=== PATIENT | male | born 1990 | race Caucasian/White ===

== ENCOUNTER 2019-11-19 00:42 | Emergency (ER) | payer SELFPAY ==
[2019-11-19 00:50] VITALS: BP 134/91; PULSE 92; RESP 20; TEMP 36.4; O2SAT 91; BMI 26.9
--- NOTE | 2019-11-19 01:38 | W.ED.EAR ---
HPI - Ear Problem General: Chief complaint: Ear Stated complaint: foreign obj in ear Time Seen by Provider: 11/19/19 01:17 Source: patient Mode of arrival: ambulatory Limitations: no limitations History of Present Illness: HPI Narrative: Patient states he is been out camping when he felt something go in his ear. He feels as though it may be a bug. He states he can feel the insect move up against his ear. He denies any vertigo, vomiting, headache, discharge or bleeding from the ear. Associated symptoms: Denies fever(s), headache(s) or neck pain Review of Systems Const: Denies: fever(s) Eyes: Denies: change in vision ENMT: Denies: throat pain Card: Denies: chest pain, palpitations, syncope, pre-syncope or dyspnea on exertion Resp: Denies: dyspnea, productive cough or non-productive cough GI: Denies: abdominal pain, nausea, vomiting or diarrhea : Denies: flank pain, dysuria, urinary frequency or urinary urgency Musc: Denies: neck pain, back pain or extremity pain Skin/Breast: Denies: rash or pruritus Neuro: Denies: headache(s), numbness in extremities, weakness in extremities or dizziness [place]/Lymph: Denies: easy bruising or easy bleeding All/Imm: Denies: urticaria PFSH ED PFSH: Medical History (Updated 11/19/19 @ 02:03 by Lisa Falcon) No pertinent past medical history Social History Smoking and tobacco status: current every day smoker Physical Exam Const: COMMON NORMALS: no acute distress, patient oriented x3, no limitations, healthy appearing and well nourished GENERAL APPEARANCE: cooperative, well kempt and well developed HENMT: COMMON NORMALS: normocephalic, atraumatic, external ears normal, TM's normal bilaterally and Normal external nose present HEAD & SCALP: normal to inspection, normocephalic and atraumatic FACE & SINUS: normal facial exam and face symmetric NOSE: Normal external nose present and Normal nares present EXTERNAL EAR: Yes external ears normal EXTERNAL AUDITORY CANAL: Abnormal EAC present EAC laterality: right Details: foreign body (Insect lying next to the tympanic membrane) TYMPANIC MEMBRANE: TM's normal bilaterally MOUTH: Normal oral and palatal mucosa present, lip normal and tongue normal Eye: COMMON NORMALS: Equal, round and reactive pupils present and conjunctivae normal GENERAL EYE: appearance normal, both eyes and all related structures ALIGNMENT: Yes alignment normal PERIORBITAL: periorbital findings normal EYELID: eyelids normal CONJUNCTIVA: Yes conjunctivae normal SCLERA: sclerae normal PUPIL: Yes Equal, round and reactive pupils present Neck/C-Spine: COMMON NORMALS: full ROM, no lymphadenopathy, supple, no meningeal signs and no JVD GENERAL: Yes normal visual inspection and Yes trachea midline Chest: COMMONS NORMALS: normal inspection of the chest and normal palpation of entire chest wall Resp: COMMON NORMALS: normal respiratory effort, No retractions and No use of accessory muscles EFFORT & INSPECTION: Yes able to speak in complete sentences and Yes symmetric chest movement AUSCULTATION: no crackles, no rales, no rhonchi and no wheezes Cardio: COMMON NORMALS: no JVD, regular rate, regular rhythm, S1 normal heart sound present and S2 normal heart sound present RATE: regular rate RHYTHM: regular rhythm HEART SOUNDS: S1 normal heart sound present, S2 normal heart sound present, no click, no gallops, no murmurs, no rubs and abnormal split S2 GI: COMMON NORMALS: Soft to palpation and No hepatosplenomegaly present PALPATION: Yes Soft to palpation, No Tenderness to palpation present (GI), No Guarding due to palpation present (GI), No Rigid due to palpation, Yes No hepatosplenomegaly present, No Hernia present, No Palpable mass present and No Pulsatile mass present : COMMON NORMALS: Yes no CVA tenderness BLADDER/KIDNEY EXAM: Yes no CVA tenderness Back/Pelvis: COMMON NORMALS: no CVA tenderness, thoracic and lumbar spine normal to inspection, no thoracic nor lumbar tenderness and thoraco-lumbar ROM normal Extremity: COMMON NORMALS: normal to inspection, full ROM, capillary refill normal, no joint enlargement, no clubbing, cyanosis or edema and no calf tenderness Neuro: COMMON NORMALS: patient oriented x3, CN's II-XII intact bilaterally, moves all extremities, no focal motor deficits and no sensory deficits noted MENINGEAL SIGNS: Yes no meningeal signs SPEECH: speech normal Psych: COMMON NORMALS: mental status grossly normal, Normal thought process present, cooperative, normal affect, speech normal and activity/motor behavior normal APPEARANCE: Yes well kempt SPEECH: Yes normal speech THOUGHT PROCESS: Normal thought process present Skin: COMMON NORMALS: no rashes or lesions noted, turgor normal, no jaundice, no petechiae and no mottling GENERAL SKIN EXAM: no rashes or lesions noted and turgor normal Procedures FB Removal Ear Location: ear canal (R) Foreign Body Suspected: insect TM intact pre-procedure: yes If Insect Suspected: ear canal instilled with Lidocaine Foreign Body Removed: yes Foreign Body Removal Technique: instrumentation Tympanic Membrane Intact Post Procedure: Yes Patient Tolerated Procedure: well Complications: none Course Vital Signs: Vital signs: Vital Signs Temperature 97.6 F 11/19/19 00:50 Pulse Rate 92 11/19/19 00:50 Respiratory Rate 20 H 11/19/19 00:50 Blood Pressure 134/91 11/19/19 00:50 Pulse Oximetry 91 11/19/19 00:50 MDM - Ear MDM Narrative: Medical decision making narrative: After numbing and then irrigation the insect came further out of the ear canal. I was able to grasp it with alligator forceps and remove it in its entirety/hold. The ear canal was then examined I saw no evidence of any further foreign body. There was some irritation of the canal as the area had been irrigated so it was then irrigated again to remove any possible remaining foreign body. I will place him on ofloxacin eardrops for the next 7 days to prevent any infection. Discharge Plan Discharge Patient Disposition: Home, Self-Care Clinical Impression: Foreign body in ear Qualifiers: Encounter type: initial encounter Laterality: left Qualified Code(s): T16.2XXA - Foreign body in left ear, initial encounter Condition: Stable Prescriptions: No Action No Known Home Medications RF: 0 Discharge Orders: Discharge Order (Routine); Ordered 11/19/19 Ordered By: Lisa Falcon Referrals: Jerad Sepulveda MD [Physician] - 1-3 days Discharge Diet: Advance as tolerated Discharge Activity: Increase activity as tolerated Patient Instructions: Otitis Externa (ED) Activity Restrictions/Additional Instructions: Please return to the ER immediately for any of the signs or symptoms listed on your discharge instruction sheets, worsening/changing of your symptoms, you are not getting better as quickly as expected, or for ANY other cause or concerns. Return to the ER for increased pain, dizziness, vomiting, fever, or for any other cause for concern. Use the eardrops I am sending home with you, use 10 drops in your left ear daily for 6 more days. Discharge Date/Time: 11/19/19 02:26 Coding Level of Care Code ED Calender Operator Helper for Chg Fwd Exam Comprehensive
[2019-11-19] MEDS: ofloxacin 0.3% otic 5 mL Btl 3 DROP EAR-LEFT ×2 (02:21→02:26)
== END 2019-11-19 02:26 | disposition home or self-care (01) ==
PROVIDERS: Emergency Provider Emergency Medicine
DX: T16.2XXA Foreign body in left ear, initial encounter (principal); X58.XXXA Exposure to other specified factors, initial encounter; F17.210 Nicotine dependence, cigarettes, uncomplicated
CPT/HCPCS: 12345; 99282

== ENCOUNTER 2022-04-27 20:16 | Emergency (ER) | payer SELFPAY ==
[2022-04-27 20:28] VITALS: BP 123/83; PULSE 82; RESP 16; TEMP 37; O2SAT 97; BMI 25.2
[2022-04-27 22:01] VITALS: BP 123/83; PULSE 82; RESP 16; TEMP 37; O2SAT 97
--- NOTE | 2022-04-27 22:51 | XRR_ITS ---
PROCEDURE INFORMATION: Exam: XR Abdomen Exam date and time: 04/28/2022 12:02 AM Age: 31 years old Clinical indication: Abdominal pain; Flank; Right; Additional info: Right flank pain TECHNIQUE: Imaging protocol: Radiologic exam of the abdomen. Views: Frontal supine view of the abdomen. 1 View. COMPARISON: CR XR acute abdomen series [id number] 07/04/2016 2:42 PM FINDINGS: Gastrointestinal tract: Moderate retained feces. Bones/joints: Unremarkable. XR/XR KUB [id number] IMPRESSION: Moderate retained feces.
[2022-04-27 23:24] LABS: Add Urine Microscopic? NO; Charge for UA Resulting for Rev
[2022-04-27 23:28] LABS: Urine Appearance Clear (CLEAR); Urine Color Yellow (Yellow)
[2022-04-27 23:29] LABS: Bilirubin Urine Neg (Negative); Blood Urine Neg (Negative); Glucose Urine UA Norm (Normal); Ketones Urine 1+ (Negative); Leukocyte Esterase Urine Negative (Negative); Nitrate Urine Negative (Negative); Protein Urine Neg (Negative); Specific Gravity, Urine 1.015 (1.005-1.030); Urobilinogen Urine 1 mg/dL (Negative); pH Urine 7 (5-7)
--- NOTE | 2022-04-28 00:09 | W.ED.BACK ---
HPI - Back Pain/Injury General: Chief Complaint: Back Pain/Injury Stated Complaint: Lower Back Pain Time Seen by Provider: 04/27/22 21:38 History of Present Illness: Patient reports off and on for a week he has been having right-sided flank pain. He reports that it just comes and goes and it feels like it tightens and is stabbing and then it goes away. He cannot determine anything that makes this better or worse. 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 He denies any urinary symptoms. He denies any hematuria. He denies fever or chills. He denies nausea and vomiting. He denies any saddle anesthesia, loss of bowel or bladder continence. He does have concern for renal stone. Associated symptoms: Deny abdominal pain, chills, dysuria, fever(s), hematuria, nausea, urinary urgency or vomiting Review of Systems Const: Denies: fever(s), chills or body aches Card: Denies: chest pain or palpitations Resp: Denies: dyspnea, productive cough or non-productive cough GI: Denies: abdominal pain, nausea or vomiting : Reports: flank pain; Denies: difficulty urinating, dysuria, urinary frequency, urinary urgency, urinary hesitancy or hematuria Musc: Reports: back pain (Right-sided back pain) [facility] ED PFSH: Medical History No pertinent past medical history Social History Smoking and tobacco status: current every day smoker Physical Exam Const: COMMON NORMALS: no acute distress, patient oriented x3 and alert OTHER: Patient is actually resting with his eyes closed in the chair whenever I am not in the room Neck/C-Spine: COMMON NORMALS: no JVD Resp: COMMON NORMALS: normal respiratory effort, No use of accessory muscles and clear to auscultation bilaterally AUSCULTATION: clear to auscultation bilaterally Cardio: COMMON NORMALS: no JVD, regular rate, regular rhythm, S1 normal heart sound present, S2 normal heart sound present and No murmurs present (Cardio) RATE: regular rate RHYTHM: regular rhythm HEART SOUNDS: S1 normal heart sound present and S2 normal heart sound present GI: COMMON NORMALS: Normal to inspection, nondistended, normoactive bowel sounds present, Soft to palpation and non-tender PALPATION: Yes Soft to palpation : BLADDER/KIDNEY EXAM: Yes CVA tenderness (Mild) on the right Back/Pelvis: GENERAL BACK: Yes CVA tenderness (Mild) OTHER: There is mild paraspinal muscular tension right side lumbar however palpation of this area does not reproduce pain complaint. There is no vertebral point tenderness. Neuro: COMMON NORMALS: patient oriented x3 SENSORIUM/ORIENTATION: Yes alert Course Vital Signs: Vital signs: Vital Signs Temperature 98.6 F 04/27/22 22:01 Pulse Rate 82 04/27/22 22:01 Respiratory Rate 16 04/27/22 22:01 Blood Pressure 123/83 04/27/22 22:01 Pulse Oximetry 97 04/27/22 22:01 Oxygen Delivery Me thod 04/27/22 22:01 MDM - Back Pain/Injury Medical Decision Making Consider renal stone, lumbar ago, muscle spasm, urinary tract infection, pyelonephritis. Urine was positive for ketones and 1+ bilirubin negative for nitrates or blood. KUB positive for moderate retained feces otherwise negative. Patient is in no acute distress. Does not have significant CVA tenderness. Is afebrile with no other indications of significant infection or obstruction. We will treat patient with muscle relaxant and anti-inflammatory medications. Encouraged him to stay well-hydrated. Follow-up with primary care provider as needed. Return to the ER for any new or worsening symptoms or if symptoms are. Persisting beyond the next 48 to 72 hours despite treatment. Patient is agreeable to this plan of care Labs Radiology Impressions KUB X-Ray 04/27/22 22:51 IMPRESSION: Moderate retained feces. Laboratory Results Urine Color Yellow (Yellow) 04/27/22 23:17 Urine Appearance Clear (CLEAR) 04/27/22 23:17 Urine pH 7 (5-7) 04/27/22 23:17 Ur Specific [place] 1.015 (1.005-1.030) 04/27/22 23:17 Urine Protein Neg (Negative) 04/27/22 23:17 Urine Glucose (UA) Norm (Normal) 04/27/22 23:17 Urine Ketones 1+ (Negative) H 04/27/22 23:17 Urine Blood Neg (Negative) 11/27/22 23:17 Urine Nitrate Negative (Negative) 04/27/22 23:17 Urine Bilirubin Neg (Negative) 04/27/22 23:17 Urine Urobilinogen 1 mg/dL (Negative) H 04/27/22 23:17 Ur Leukocyte Esterase Negative (Negative) 04/27/22 23:17 Discharge Plan Discharge Patient Disposition: Home Clinical Impression: Muscle spasm, Flank pain, Constipation Condition: Stable Prescriptions: New methocarbamol 750 mg tablet 750 mg PO Q8H PRN (Reason: muscle spasm) Qty: 10 0RF naproxen 500 mg tablet 500 mg PO BID PRN (Reason: pain) 3 Days Qty: 6 0RF Discharge Orders: Discharge ED (Routine); Ordered 04/28/22 Ordered By: Jess Jain Discharge Diet: Usual diet Discharge Activity: Resume usual activity Patient Instructions: Constipation (ED), Flank Pain (ED), Muscle Spasm (ED) Activity Restrictions/Additional Instructions: Take Robaxin when you get home tonight. Do not take this medication and then drive. Do not take other medications that make you sleepy with the Robaxin. Fill your prescription tomorrow and start the Robaxin and the naproxen as prescribed as needed. Monitor closely for worsening symptoms. Follow-up with your primary care provider. Return to the ER for any new or worsening symptoms. I recommend no lifting for the next 3 days to allow your back to rest. Coding Level of Care Code ED Control Clerk Food And Beverage for Ana Rosa Fwbertha Exam Detailed
[2022-04-28] MEDS: methocarbamol 750 mg Tablet PO (00:27)
[2022-04-28] MEDS: ketorolac 60 mg/2 mL INJ IM (00:28)
[2022-04-28 00:31] VITALS: BP 123/78; PULSE 78; RESP 18; O2SAT 100
== END 2022-04-28 00:30 | disposition home or self-care (01) ==
PROVIDERS: Emergency Provider Nurse Practitioner Family
DX: M62.830 Muscle spasm of back (principal); K59.00 Constipation, unspecified; R10.31 Right lower quadrant pain
CPT/HCPCS: 74018; 81003; 96372; 99284; J1885

== ENCOUNTER 2023-01-18 13:11 | Emergency (ER) | payer MEDICAID, SELFPAY ==
[2023-01-18 13:16] VITALS: BP 116/79; PULSE 118; RESP 17; TEMP 36.7; O2SAT 98
--- NOTE | 2023-01-18 13:40 | W.ED.DIZZY ---
HPI - Dizziness General: Chief Complaint: Dizziness Stated Complaint: weakness Time Seen by Provider: 01/18/23 13:37 Source: patient Mode of arrival: ambulatory History of Present Illness: HPI Narrative: This 32-year-old male with a history of methamphetamine and marijuana use presents to the ER with intermittent dizziness that started over a month ago but has progressively worsened. Dizziness lasts for about 30 seconds and resolves spontaneously. It usually happens when he has been sitting down for long time. During the episode, he feels things are zooming in and out . There is no associated loss of consciousness, chest pain, nausea or vomiting. Patient denies fever. Patient believes that he drinks enough fluids daily. 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 He smokes marijuana daily. Associated symptoms: Denies chest pain, chills or headache(s) Review of Systems Const: Denies: chills, body aches or change in appetite Eyes: Denies: change in vision or eye discharge ENMT: Denies: throat pain, dental pain or nasal discharge Card: Denies: chest pain or lightheadedness : Denies: dysuria Musc: Denies: neck pain or back pain Neuro: Reports: dizziness; Denies: headache(s), weakness in extremities or vertigo Psych: Denies: depression Harlan/Lymph: Denies: easy bruising All/Imm: Denies: urticaria, tongue swelling or facial swelling PFSH ED PFSH: Medical History No pertinent past medical history Social History Smoking and tobacco status: current every day smoker Physical Exam Const: COMMON NORMALS: no acute distress, patient oriented x3, no limitations and alert HENMT: COMMON NORMALS: normocephalic HEAD & SCALP: normocephalic Eye: COMMON NORMALS: EOMs intact bilaterally Neck/C-Spine: COMMON NORMALS: full ROM and supple Chest: COMMONS NORMALS: normal inspection of the chest Resp: COMMON NORMALS: normal respiratory effort, No retractions, No use of accessory muscles and clear to auscultation bilaterally AUSCULTATION: clear to auscultation bilaterally Cardio: COMMON NORMALS: regular rate, regular rhythm and No murmurs present (Cardio) RATE: regular rate RHYTHM: regular rhythm GI: COMMON NORMALS: Normal to inspection, nondistended, normoactive bowel sounds present and non-tender : COMMON NORMALS: Yes no CVA tenderness BLADDER/KIDNEY EXAM: Yes no CVA tenderness Back/Pelvis: COMMON NORMALS: no CVA tenderness and no thoracic nor lumbar tenderness Extremity: GENERAL: Yes normal exam except as noted Neuro: COMMON NORMALS: patient oriented x3 and no focal motor deficits SENSORIUM/ORIENTATION: Yes alert COORDINATION/BALANCE: [id number] test normal SPEECH: speech normal GAIT: Yes Normal gait present SENSORY EXAM: Yes extremities COORDINATION: [id number] test normal Psych: COMMON NORMALS: mental status grossly normal and cooperative Course Vital Signs: Vital signs: Vital Signs Temperature 98.1 F 01/18/23 13:16 Pulse Rate 118 H 01/18/23 13:16 Respiratory Rate 18 01/18/23 14:20 Blood Pressure 116/79 01/18/23 13:16 Pulse Oximetry 98 01/18/23 13:16 Oxygen Delivery Me thod Room Air 01/18/23 14:20 MDM - Dizziness Medical Decision Making Medical decision making: History as above. Patient's dizzy spells appear to be short-lived. He remained stable throughout his stay in the ER. Clinical exam is negative for any significant finding. CT brain is normal and completed blood tests normal except for urine drug screen that is positive for methamphetamine and marijuana. I had an extensive discussion with patient about avoiding recreational substances. That may partly or fully explain his symptoms. He was advised to maintain adequate fluid intake and follow-up with his primary care physician. Reasons to return were discussed. Patient verbalized understanding and agrees with the plan. Lab Data 01/18/23 13:55 01/18/23 13:[address] 01/18/23 13:57 IMPRESSION: No mass effect, layering hemhorrage or hydocephalus is demostrated. No acute intracranial changes are appreciated. Laboratory Results WBC 7.6 10^3/uL (4.0-10.0) 01/18/23 13:55 RBC 5.46 10^6/uL (4.1-5.3) H 01/18/23 13:55 Hgb 14.9 g/dL (11.7-16.6) 01/18/23 13:55 Hct 46.4 % (42.0-52.0) 01/18/23 13:55 MCV 85.0 fl (80-94) 01/18/23 13:55 MCH 27.3 pg (28.0-34.0) L 01/18/23 13:55 MCHC 32.1 g/dL (30.0-36.0) 01/18/23 13:55 RDW 14.0 % (12.1-15.1) 01/18/23 13:55 Plt Count 270 10^3/cmm (130-400) 01/18/23 13:55 MPV 8.5 fL (7.4-10.4) 01/18/23 13:55 Neut % (Auto) 53.6 % 01/18/23 13:55 Lymph % (Auto) 31.9 % 01/18/23 13:55 [place] % (Auto) 9.9 % 01/18/23 13:55 Eos % (Auto) 2.9 % 01/18/23 13:55 Baso % (Auto) 1.3 % 01/18/23 13:55 Neut # (Auto) 4.07 10^3/uL (1.8-7.7) 01/18/23 13:55 Lymph # (Auto) 2.4 10^3/uL (0.8-4.8) 01/18/23 13:55 [place] # (Auto) 0.8 10^3/uL (0.2-0.9) 01/18/23 13:55 Eos # (Auto) 0.2 10^3/uL (0.0-0.8) 01/18/23 13:55 Baso # (Auto) 0.1 10^3/uL (0.0-0.1) 01/18/23 13:55 Nucleated RBC % (auto) 0 % 01/18/23 13:55 Nucleated RBCs # 0.0 /100WBC 01/18/23 13:55 Sodium 141 mmol/L (136-145) 01/18/23 13:55 Potassium 4.1 mmol/L (3.5-5.1) 01/18/23 13:55 Chloride 105 mmol/L (98-107) 01/18/23 13:55 Carbon Dioxide 28 mmol/L (22-29) 01/18/23 13:55 Anion Gap 12.1 (5-19) 01/18/23 13:55 BUN 16 mg/dL (6-20) 01/18/23 13:55 Creatinine 0.8 mg/dL (0.7-1.2) 01/18/23 13:55 GFR Calculation 112.8 mL/min (90-130) 01/18/23 13:55 Glucose 89 mg/dL (65-115) 01/18/23 13:55 Calculated Osmolality 293 mOsm/kg (285-295) 01/18/23 13:55 Calcium 9.0 mg/dL (8.5-10.5) 01/18/23 13:55 Total Bilirubin 0.2 mg/dL (0.15-1.2) 01/18/23 13:55 AST 40 U/L (0-40) 01/18/23 13:55 ALT 106 U/L (0-41) H 01/18/23 13:55 Alkaline Phosphatase 54 U/L (40-130) 01/18/23 13:55 Total Protein 6.7 g/dL (6.6-8.7) 01/18/23 13:55 Albumin 4.2 g/dL (3.5-5.2) 01/18/23 13:55 Globulin 2.5 g/dL (1.3-4.6) 01/18/23 13:55 Urine Color Yellow (Yellow) 01/18/23 14:15 Urine Appearance Clear (CLEAR) 01/18/23 14:15 Urine pH 6.5 (5-7) 01/18/23 14:15 Ur Specific [place] 1.015 (1.005-1.030) 01/18/23 14:15 Urine Protein Neg (Negative) 01/18/23 14:15 Urine Glucose (UA) Norm (Normal) 01/18/23 14:15 Urine Ketones Negative (Negative) 01/18/23 14:15 Urine Blood Neg (Negative) 01/18/23 14:15 Urine Nitrate Negative (Negative) 01/18/23 14:15 Urine Bilirubin Neg (Negative) 01/18/23 14:15 Urine Urobilinogen Norm mg/dL (Negative) 01/18/23 14:15 Ur Leukocyte Esterase Negative (Negative) 01/18/23 14:15 Urine Opiates Screen Negative ng/mL (Negative) 01/18/23 14:15 Ur Barbiturates Screen Negative ng/mL (Negative) 01/18/23 14:15 Ur Phencyclidine Scrn Negative ng/mL (Negative) 01/18/23 14:15 Ur Amphetamines Screen Positive ng/mL (Negative) H 01/18/23 14:15 U Benzodiazepines Scrn Negative ng/mL (Negative) 01/18/23 14:15 Urine Cocaine Screen Negative ng/mL (Negative) 01/18/23 14:15 U Marijuana (THC) Screen Positive ng/mL (Negative) H 01/18/23 14:15 Discharge Plan Discharge Patient Disposition: Home Clinical Impression: Dizziness, nonspecific Condition: Stable Prescriptions: New meclizine 25 mg tablet 25 mg PO TID PRN (Reason: dizziness) Qty: 20 0RF No Action ibuprofen 200 mg Tablet 800 mg PO Q8H PRN (Reason: Pain) Discharge Orders: Discharge ED (Routine); Ordered 01/18/23 Ordered By: Josesito Javier Discharge Diet: Usual diet Discharge Activity: Resume usual activity Patient Instructions: Opioid Safety, Pain Management Activity Restrictions/Additional Instructions: Avoid use of recreational substances like methamphetamine. Maintain adequate fluid intake. Take meclizine as needed for dizziness. Follow-up with your primary care physician within a week for reevaluation. Return if you develop any new or worsening symptoms. Coding Level of Care Code ED Complaint Evaluation Supervisor for Ana Rosa Fuentes
[2023-01-18] MEDS: meclizine 25 mg tablet 50 MG PO (13:57)
[2023-01-18] MEDS: sodium chloride 0.9% 1,000 ML 999 ML IV (13:57)
--- NOTE | 2023-01-18 13:57 | CTR_ITS ---
PROCEDURE INFORMATION: Exam: CT Head Without Contrast Exam date and time: 01/18/2023 2:15 PM Age: 32 years old Clinical indication: Dizziness. No history of trauma or recent surgery is provided. TECHNIQUE: Imaging protocol: Computed tomography of the head without contrast. 306image(s) are provided. Radiation optimization: All CT scans at this facility use at least one of these dose optimization techniques: automated exposure control; mA and/or kV adjustment per patient size (includes targeted exams where dose is matched to clinical indication); or iterative reconstruction. Other technique: Axial images are available with sagittal and coronal reconstruction views. Automated dose exposure control is utilized. The DLP is 1068.86. REPORTING DATA: Count of CT and Cardiac NM exams in prior 12 months: This patient has received 0 known CTs and 0 known cardiac nuclear medicine studies in the 12 months prior to the current study. COMPARISON: No relevant prior studies available. RADIATION DOSE METRICS: Total DLP (mGy-cm): 1068.86 FINDINGS: Brain: No mass effect or layering hemorrhage is appreciated. [place], white matter differentiation appears maintained. Cerebral ventricles: No hydrocephalus is appreciated. Paranasal sinuses: The included paranasal sinuses appear well-aerated overall. Mastoid air cells: The mastoid air cells appear well-aerated overall. Orbital cavities: Symmetric appearance of the orbital soft tissues is demonstrated. Bones/joints: Osseous alignment is maintained.No displaced fracture or dislocation is appreciated. There is a relatively symmetric overall appearance of the osseous margins of the internal auditory canals. Soft tissues: No radiopaque foreign body or subcutaneous emphysema is appreciated. CT/CT head wo con* [id number] IMPRESSION: No mass effect, layering hemhorrage or hydocephalus is demostrated. No acute intracranial changes are appreciated.
[2023-01-18 14:05] LABS: Basophils # 0.1 10^3/uL (0.0-0.1); Basophils % 1.3 %; Eosinophils # 0.2 10^3/uL (0.0-0.8); Eosinophils % 2.9 %; Hematocrit 46.4 % (42.0-52.0); Hemoglobin 14.9 g/dL (11.7-16.6); Lymphocytes # 2.4 10^3/uL (0.8-4.8); Lymphocytes % 31.9 %; Mean Corpuscular HGB Conc 32.1 g/dL (30.0-36.0); Mean Corpuscular Hemoglobin 27.3 pg (28.0-34.0); Mean Platelet Volume 8.5 fL (7.4-10.4); Monocytes # 0.8 10^3/uL (0.2-0.9); Monocytes % 9.9 %; Neutrophils # 4.07 10^3/uL (1.8-7.7); Neutrophils % 53.6 %; Nucleated Red Blood Cells % 0 %; Platelet Count 270 10^3/cmm (130-400); Red Blood Count 5.46 10^6/uL (4.1-5.3); White Blood Count 7.6 10^3/uL (4.0-10.0)
[2023-01-18 14:20] VITALS: RESP 18
[2023-01-18 14:26] LABS: Alanine Aminotransferase 106 U/L (0-41); Albumin Level 4.2 g/dL (3.5-5.2); Alkaline Phosphatase 54 U/L (40-130); Anion Gap 12.1 (5-19); Aspartate Amino Transferase 40 U/L (0-40); Blood Urea Nitrogen 16 mg/dL (6-20); Carbon Dioxide 28 mmol/L (22-29); Chloride 105 mmol/L (98-107); Creatinine Clr Calc Pharmacy 161.1785; Globulin 2.5 g/dL (1.3-4.6); Glomerular Filtration Rate 112.8 mL/min (90-130); Glucose 89 mg/dL (65-115); Osmolality Calculated 293 mOsm/kg (285-295); Potassium 4.1 mmol/L (3.5-5.1); Sodium 141 mmol/L (136-145); Total Bilirubin 0.2 mg/dL (0.15-1.2); Total Protein 6.7 g/dL (6.6-8.7)
[2023-01-18 14:55] LABS: Add Urine Microscopic? NO; Charge for UA Resulting for Rev
[2023-01-18 14:58] LABS: Bilirubin Urine Neg (Negative); Blood Urine Neg (Negative); Glucose Urine UA Norm (Normal); Ketones Urine Negative (Negative); Leukocyte Esterase Urine Negative (Negative); Nitrate Urine Negative (Negative); Protein Urine Neg (Negative); Specific Gravity, Urine 1.015 (1.005-1.030); Urine Appearance Clear (CLEAR); Urine Color Yellow (Yellow); Urobilinogen Urine Norm (Negative); pH Urine 6.5 (5-7)
[2023-01-18 15:06] LABS: Amphetamines Screen Urine Positive (Negative); Barbiturates Screen Urine Negative (Negative); Benzodiazepines Screen Urine Negative (Negative); Cocaine Screen Urine Negative (Negative); Opiate Screen Urine Negative (Negative); PCP Screen Urine Negative (Negative); THC Screen Urine Positive (Negative)
[2023-01-18 16:27] LABS: Hepatitis A Antibody IgM Non-Reactive (Nonreactive); Hepatitis B Surface AB 93.7 (11.5-1000); Hepatitis B Surface Antigen Non-Reactive (Nonreactive)
[2023-01-18 17:28] LABS: Hepatitis B Core AB, Total Reactive (Nonreactive)
[2023-01-18 17:29] LABS: Hepatitis C Virus Antibody Reactive (Nonreactive)
[2023-01-21 20:00] LABS: HEP C RNA Viral Load Quant 6.92 Log IU/mL (NOT DETECTED)
== END 2023-01-18 15:58 | disposition home or self-care (01) ==
PROVIDERS: Emergency Provider Family Medicine
DX: R42 Dizziness and giddiness (principal)
CPT/HCPCS: 36415; 70450; 80053; 80306; 81003; 85025; 86705; 86706; 86709; 86803; 87340; 87522; 99284; J7030; J8597